=== PATIENT | female | born 1975 | race Two or more races ===

== ENCOUNTER 2025-01-11 22:30 | Inpatient (IN) | payer MEDICAID, OTHER, SELFPAY ==
--- OUTSIDE RECORDS SUMMARY | 2025-01-11 22:37 | XMS_ITS | Encounter Summary ---
Author Organization [employer] Address [address] [place] [address] [address] [place] [address] Care Team Providers Care Therapeutic Radiologist Name Role Phone Charley Lorenzo Primary Care Provide r Reason for Visit * Reason Onset Date Comments Appointment Request 03/06/2024 Encounter Details Date Type Department Care Team ([facility] Contact Info) Description 03/06/2024 Telephone [facility] Family [address] [phone] Charley Lornezo FNP [address] [place] [phone] Appointment Request Social History Tobacco Use Types Packs/Day Years Used Date Smoking Tobacco: Never Assessed Comments Unknown Sex and Gender Information Value Date Recorded Sex Assigned at Female 03/19/2024 8:03 AM EDT Legal Sex Female 6:56 PM EDT Gender Identity Female 03/19/2024 8:03 AM EDT Sexual Orientation Don't know 03/19/2024 8: 04 AM EDT documented as of this encounter Miscellaneous Notes * Telephone Encounter - Devora Vasquez - 03/06/2024 4:10 PM EDT Dental appt documented in this encounter Plan of Treatment Upcoming Encounters Date Type Department Care Team ([facility] Contact Info) Description 02/27/2025 9:30 AM EDT Office Visit [facility] Dental [address] [place] [phone] Betty Murillo BDS [address] [place] [phone] 04/22/2025 10:20 AM EST Telemedicine [facility] Family Med [address] [place] [phone] Charley Lorenzo FNP [address] [place] [phone] 05/21/2025 1:45 PM EST Office Visit [facility] Dental [address] [place] [phone] Criselda Perez documented as of this encounter Visit Diagnoses Not on filedocumented in this encounter Care Teams Therapeutic Radiologist Relationship Specialty Start Date End Date Charley Lorenzo FNP [address] [place] [phone] PCP - General Family Medicine 12/09/21 documented as of this encounter
[2025-01-11 22:57] VITALS: BP 127/90; PULSE 93; RESP 18; TEMP 36.9; O2SAT 97
[2025-01-11 23:34] VITALS: BMI 25.9
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
[2025-01-12 07:50] VITALS: BP 122/74; PULSE 109; RESP 16; TEMP 36.7; O2SAT 100
[2025-01-12 08:29] LABS: Alanine Aminotransferase 25 U/L (0-31); Albumin Level 4.4 g/dL (3.5-5.0); Alkaline Phosphatase 74 U/L (39-117); Anion Gap 10 (12-20); Aspartate Amino Transferase 20 U/L (5-31); Blood Urea Nitrogen 17 mg/dL (9-16); Calcium 9.7 mg/dL (8.4-10.2); Carbon Dioxide 28 mmol/L (22-29); Chloride 107 mmol/L (96-108); Cholesterol 208 mg/dL (<200); Creatinine Clr Calc Pharmacy 87.5; Estimated Glomerular Filt Rate > 60; HDL Cholesterol 62 mg/dL (>40); Potassium 3.8 mmol/L (3.3-5.1); Sodium 141 mmol/L (135-145); Total Protein 7.3 g/dL (6.5-8.0); Triglycerides 70 mg/dL (<150)
[2025-01-12 08:44] LABS: Free T4 (Free Thyroxine) 1.43 ng/dL (0.71-1.85); Thyroid Stimulating Hormone 1.20 uIU/mL (0.32-4.0)
[2025-01-12 11:20] LABS: Hemoglobin A1C 140.3758 umol/L; Total Hemoglobin (HGBA1C) 3549.4750 umol/L
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
[2025-01-12] MEDS: Milk of Magnesia 30 ML ORAL.SUSP PO (19:40)
[2025-01-12 20:16] VITALS: BP 117/81; PULSE 86; RESP 16; TEMP 36.7; O2SAT 96
[2025-01-13 03:45] LABS: CT PCR Urine NOT DETECTED (Not Detect.); NG PCR Urine NOT DETECTED (Not Detect.)
[2025-01-13 04:08] LABS: Syphilis Screen Nonreactive (Nonreactive)
[2025-01-13 04:17] LABS: HBS Num1 4.04 mIU/mL (0-7.99); HBc Num1 0.57 S/CO (0.00-0.79); HBsAGNum1 0.32 S/CO (0.00-0.99); HIV Num 1 0.16 S/CO (0.00-0.99); Hepatitis A Antibody IgM 0.34 Index (0-0.79); Hepatitis B Surface Antigen Negative (Negative); ~HepC Num1 0.24 S/CO (0.00-0.79); ~Hepatitis A Antibody IgM Nonreactive (Nonreactive); ~Hepatitis B Surface Antibody NONREACTIVE (Nonreactive); ~Hepatitis C Antibody Nonreactive (Nonreactive)
[2025-01-13 08:00] VITALS: BP 96/55; PULSE 84; RESP 16; TEMP 36.8; O2SAT 95
[2025-01-13 19:30] VITALS: BP 134/87; PULSE 85; RESP 16; TEMP 36.2; O2SAT 97
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
[2025-01-13 22:00] VITALS: BP 122/78; PULSE 86
[2025-01-14 09:00] VITALS: BP 100/60; PULSE 100; RESP 18; TEMP 36.9; O2SAT 98
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
[2025-01-14 23:02] VITALS: BP 122/62; PULSE 68
[2025-01-15] VITALS (8 sets, daily range): BP systolic 102–133; BP diastolic 57–80; PULSE 91–154; RESP 14–20; TEMP 36.3–36.6; O2SAT 96–98
--- NOTE | 2025-01-15 02:30 | ECG_ITS ---
Test Reason : elevated pulses 130 Blood Pressure : */* mmHG Vent. Rate : 81 BPM Atrial Rate : 81 BPM P-R Int : 156 ms QRS Dur : 82 ms QT Int : 396 ms P-R-T Axes : 53 60 43 degrees QTcB Int : 460 ms Normal sinus rhythm Normal ECG No previous ECGs available Referred By: Hanna Iverson Electronically Signed By: SURESH NOVA
[2025-01-15 03:30] LABS: Troponin-I High Sensitivity < 2.7 ng/L (<3.5-17.0)
--- NOTE | 2025-01-15 03:34 | PC.NURSE ---
Pt at 0200 approached staff c/o rapid heart rate, slight chest pain, and palpitations . Pt appeared anxious on approach, alert and oriented, steady gait, and no observed SOB, color good, no diaphoresis, no confusion and able to speak clearly. Pt was then asked to sit down. Check [facility] for vitals. Pt communicated with use of sheet metal duct installer helper, provider made aware. Orders for an EKG, blood draw, and one time dose of Ativan 1mg received. Ativan given at 0301. Vitals showed gradual decrease in BP and pulse, pt reported decreased severity of palpitations and denied chest pain. Erin Iverson aware of EKG results. is currently in bed.
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
[2025-01-16 07:48] VITALS: BP 122/72; PULSE 98; RESP 18; TEMP 36.8; O2SAT 96
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
[2025-01-16 19:10] VITALS: BP 141/83; PULSE 83; RESP 16; TEMP 36.2; O2SAT 97
[2025-01-16 22:10] VITALS: BP 129/77
[2025-01-17 07:00] VITALS: BMI 26.5
[2025-01-17 07:43] VITALS: BP 115/63; PULSE 85; RESP 16; TEMP 37
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
[2025-01-17 20:00] VITALS: BP 117/66; PULSE 76; RESP 16; TEMP 36.4; O2SAT 97
[2025-01-17 21:22] VITALS: BP 117/66
[2025-01-18 07:42] VITALS: BP 134/63; PULSE 88; RESP 16; TEMP 36.9; O2SAT 98
== END 2025-01-18 11:11 | disposition home or self-care (01) | DRG 755 ==
PROVIDERS: Nurse Practitioner Psychiatric/Mental Health; Social Worker; Student in an Organized Health Care Education/Training Program; Admitting Provider Psychiatry & Neurology Psychiatry; Visit Provider Psychiatry & Neurology Psychiatry
DX: F43.11 Post-traumatic stress disorder, acute (principal); R45.851 Suicidal ideations; T74.21XA Adult sexual abuse, confirmed, initial encounter; Y07.54 Acquaintance or friend, perpetrator of maltreatment and neglect; Z79.899 Other long term (current) drug therapy
CPT/HCPCS: 36415; 80053; 80061; 83036; 84439; 84443; 84484; 86704; 86706; 86709; 86780; 86803; 87340; 87389; 87491; 87591; 87661; 93005

== ENCOUNTER 2025-01-11 22:30 | Outpatient (BNV) | payer SELFPAY | END 2025-01-15 02:30 | PROVIDERS: Admitting Provider Psychiatry & Neurology Psychiatry; Visit Provider Internal Medicine | DX: R00.0 Tachycardia, unspecified (principal) | CPT/HCPCS: 93010 ==

== ENCOUNTER → 2025-01-11 22:30 | Outpatient (BNV) | payer SELFPAY | PROVIDERS: Admitting Provider Psychiatry & Neurology Psychiatry; Visit Provider Psychiatry & Neurology Psychiatry | DX: F43.11 Post-traumatic stress disorder, acute (principal); F41.9 Anxiety disorder, unspecified | CPT/HCPCS: 99231; 99232; 99239 ==

== ENCOUNTER → 2025-01-11 22:30 | Outpatient (BNV) | payer SELFPAY | PROVIDERS: Admitting Provider Psychiatry & Neurology Psychiatry; Visit Provider Student in an Organized Health Care Education/Training Program | DX: Z02.2 Encounter for examination for admission to residential institution (principal) | CPT/HCPCS: 99429 ==